=== PATIENT | female | born 1985 | race Two or more races ===

== ENCOUNTER 2016-09-30 00:09 | Emergency (ER) | payer SELFPAY ==
[~2016-09-30] VITALS: Ht 177.8 cm; Wt 68.0 kg
[2016-09-30] MEDS ORDERED: LORAZEPAM INJ 2 MG/ML VIAL ONE (01:26)
[2016-09-30] MEDS ORDERED: LORAZEPAM INJ 2 MG/ML VIAL IM ONE (01:30)
[2016-09-30 03:24] VITALS: BP 118/69
== END 2016-09-30 02:53 | disposition home or self-care (01) ==
LOC: ER 00:13
DX: F41.9 Anxiety disorder, unspecified (principal); F41.0 Panic disorder [episodic paroxysmal anxiety]
CPT/HCPCS: 96372; 99284; A4606; J2060; Z7610